=== PATIENT | male | born 1970 ===

== ENCOUNTER 2019-01-11 09:58 | Day surgery (SDC) | payer BC ==
[~2019-01-11] VITALS: Ht 167.6 cm; Wt 83.5 kg
[~2019-01-11 09:58] MED LIST: CODACE30 PO; RXCODACET PO; TRIA55OI; TRIAOI IH
[2019-01-11] MEDS ORDERED: ZESTORETIC 20-121 EA (10:40)
--- NOTE | 2019-01-11 11:06 | NUR ---
01/11/19 1106 Keyana Pickard PT AND SO UPDATED ON DELAY. BOTH STATE AN UNDERSTANDING. DENY A NEED FOR WARM BLANKETS OR REPOSITIONING AT THIS TIME. CALL LIGHT WITHIN REACH.
== END 2019-01-11 13:25 | disposition home or self-care (01) ==
LOC: ORSCSDS 09:58
PROVIDERS: Internal Medicine Gastroenterology
PROC: 0DBL8ZX Excision of Transverse Colon, Via Natural or Artificial Opening Endoscopic, Diagnostic (ICD-10-PCS; principal; 2019-01-11 11:15)
PROC: 0DBH8ZX Excision of Cecum, Via Natural or Artificial Opening Endoscopic, Diagnostic (ICD-10-PCS; principal; 2019-01-11 11:15)
DX: Z12.11 Encounter for screening for malignant neoplasm of colon (principal); D12.0 Benign neoplasm of cecum; D12.3 Benign neoplasm of transverse colon; K57.30 Diverticulosis of large intestine without perforation or abscess without bleeding; I10 Essential (primary) hypertension; Z79.899 Other long term (current) drug therapy
CPT/HCPCS: 88305; J2704; J7120

== ENCOUNTER → 2019-06-21 | Outpatient (CLI) | payer BC ==
[~2019-06-21] MED LIST changes: +ZESTORETIC 20-121 EA
== END ==
LOC: PLD 07:35 → LAB 07:35 → LAB SHORT 07:35
DX: L30.8 Other specified dermatitis (principal)
CPT/HCPCS: 88312

== ENCOUNTER 2021-09-02 08:11 | Day surgery (SDC) | payer BC ==
[~2021-09-02] VITALS: Ht 160 cm; Wt 86.6 kg
--- NOTE | 2021-09-02 10:18 | NUR ---
09/02/21 1018 Karen Puga SCATTERED WHEEZES CLEARED WITH COUGH.
== END 2021-09-02 10:28 | disposition home or self-care (01) ==
LOC: ORSCSDS 08:11
PROVIDERS: Internal Medicine Gastroenterology
PROC: 0DBE8ZX Excision of Large Intestine, Via Natural or Artificial Opening Endoscopic, Diagnostic (ICD-10-PCS; principal; 2021-09-02 09:30)
PROC: 0DBL8ZX Excision of Transverse Colon, Via Natural or Artificial Opening Endoscopic, Diagnostic (ICD-10-PCS; principal; 2021-09-02 09:30)
DX: R19.7 Diarrhea, unspecified (principal); Z86.010 Personal history of colon polyps; Z83.71 Family history of colonic polyps; K76.0 Fatty (change of) liver, not elsewhere classified; D12.3 Benign neoplasm of transverse colon; K57.30 Diverticulosis of large intestine without perforation or abscess without bleeding; I10 Essential (primary) hypertension; Z79.899 Other long term (current) drug therapy
CPT/HCPCS: 88305; J2704; J7120